=== PATIENT | female | born 1965 | race African-American/Black ===

== ENCOUNTER 2017-07-24 19:16 | Emergency (ER) | payer MEDICAID ==
[~2017-07-24 19:16] MED LIST: ASPIR PO; [UNRECOGNIZED DRUG - OTHER] PO
[2017-07-24 22:15] VITALS: BP 124/60
== END 2017-07-24 22:15 | disposition home or self-care (01) ==
LOC: ED 19:16
DX: S16.1XXA Strain of muscle, fascia and tendon at neck level, initial encounter (principal); S39.012A Strain of muscle, fascia and tendon of lower back, initial encounter; S20.219A Contusion of unspecified front wall of thorax, initial encounter; Z90.49 Acquired absence of other specified parts of digestive tract; F17.210 Nicotine dependence, cigarettes, uncomplicated; V49.9XXA Car occupant (driver) (passenger) injured in unspecified traffic accident, initial encounter; Y93.19 Activity, other involving water and watercraft; Y92.488 Other paved roadways as the place of occurrence of the external cause; Y99.8 Other external cause status
CPT/HCPCS: J1885

== ENCOUNTER 2017-10-22 19:35 | Emergency (ER) | payer MEDICAID ==
[~2017-10-22] VITALS: Ht 157.5 cm; Wt 83.5 kg
[2017-10-22 19:39] VITALS: Ht 157.5 cm; Wt 83.5 kg
[2017-10-22 21:53] VITALS: BP 119/74
== END 2017-10-22 21:53 | disposition home or self-care (01) ==
LOC: ED 19:35
DX: S16.1XXA Strain of muscle, fascia and tendon at neck level, initial encounter (principal); S29.012A Strain of muscle and tendon of back wall of thorax, initial encounter; V89.2XXA Person injured in unspecified motor-vehicle accident, traffic, initial encounter; R07.89 Other chest pain; M25.562 Pain in left knee; V49.9XXA Car occupant (driver) (passenger) injured in unspecified traffic accident, initial encounter; Y93.89 Activity, other specified; Y92.89 Other specified places as the place of occurrence of the external cause; Y99.8 Other external cause status
CPT/HCPCS: J1170; J1885; Q0162

== ENCOUNTER 2018-01-03 11:36 | Inpatient (IN) | payer MEDICAID ==
[~2018-01-03] VITALS: Ht 157.5 cm; Wt 81.7 kg
[2018-01-03 13:07] LABS: BASOPHIL % 0.4 % (0-2); PLATELET COUNT 347 x10^3mcL (130-400); RED CELL DISTRIBUTION WIDTH 13.9 % (11.5-14.5)
[2018-01-03 14:15] LABS: UA SPECIFIC GRAVITY 1.015 (1.005-1.035); microscopic required? YES; urine erythrocyte TRACE (NEGATIVE)
[2018-01-03 14:44] LABS: CARBON DIOXIDE 27.8 mmol/L (21-32); CHLORIDE SERUM 105 mmol/L (98-107); CREATININE SERUM 0.6 mg/dL (0.6-1.0); GFR1 > 60 mL/min; GLUCOSE SERUM 89 mg/dL (74-106); POTASSIUM SERUM 3.7 mmol/L (3.5-5.1); SODIUM SERUM 139 mmol/L (136-145)
[2018-01-03 15:18] VITALS: BP 126/68
[2018-01-03 16:10] LABS: T3 TOTAL 1.18 ng/mL
[2018-01-03 18:43] LABS: FREE T4 1.05 ng/dL (0.76-1.46); FREE THYROXINE INDEX 3.2 ug/dL (1.4-4.5); T4(THYROXINE) 9.8 ug/dL (4.7-13.3)
[2018-01-03 18:45] LABS: AMPHETAMINE QUAL UR NONE DETECTED (NEG <=1000)
[2018-01-03 19:02] LABS: MAGNESIUM 2.1 mg/dL (1.8-2.4); PHOSPHOROUS 3.5 mg/dL (2.5-4.9)
[2018-01-03 19:05] LABS: CHOLESTEROL/HDL RATIO 2.5
[2018-01-03 20:39] LABS: ALBUMIN 3.8 g/dL (3.4-5.0); ALKALINE PHOSPHATASE 73 U/L (46-116); ALT/SGPT 43 U/L (14-59); AST/SGOT 24 U/L (15-37); CALCIUM 8.9 mg/dL (8.5-10.1); CARBON DIOXIDE 23.6 mmol/L (21-32); CHLORIDE SERUM 105 mmol/L (98-107); CREATININE SERUM 0.8 mg/dL (0.6-1.0); GFR1 > 60 mL/min; GLUCOSE SERUM 148 mg/dL (74-106); POTASSIUM SERUM 3.7 mmol/L (3.5-5.1); SODIUM SERUM 138 mmol/L (136-145); TOTAL PROTEIN, SERUM 7.4 g/dL (6.4-8.2)
[2018-01-03 22:29] VITALS: BP 106/55
[2018-01-04 06:06] VITALS: BP 117/61
[2018-01-04 06:54] LABS: BASOPHIL % 0.3 % (0-2); PLATELET COUNT 368 x10^3mcL (130-400); RED CELL DISTRIBUTION WIDTH 13.8 % (11.5-14.5)
[2018-01-04 07:18] LABS: CALCIUM 8.8 mg/dL (8.5-10.1); CARBON DIOXIDE 24.3 mmol/L (21-32); CHLORIDE SERUM 107 mmol/L (98-107); CREATININE SERUM 0.6 mg/dL (0.6-1.0); GFR1 > 60 mL/min; GLUCOSE SERUM 117 mg/dL (74-106); PHOSPHOROUS 2.7 mg/dL (2.5-4.9); POTASSIUM SERUM 3.9 mmol/L (3.5-5.1); SODIUM SERUM 136 mmol/L (136-145)
[2018-01-04 09:33] VITALS: BP 110/70
[2018-01-04 09:57] VITALS: Ht 157.5 cm; Wt 81.7 kg
[2018-01-04] MEDS ORDERED: ROB750 PO (12:37)
[2018-01-04 12:59] VITALS: BP 110/70
== END 2018-01-04 13:22 | disposition home or self-care (01) | DRG 347 ==
LOC: ED 11:36 → DU 14:22
PROVIDERS: Emergency Medicine; Family Medicine
DX: M51.37 Other intervertebral disc degeneration, lumbosacral region (principal); N17.0 Acute kidney failure with tubular necrosis; M62.830 Muscle spasm of back; M94.0 Chondrocostal junction syndrome [Tietze]; R31.9 Hematuria, unspecified; R73.03 Prediabetes; F12.10 Cannabis abuse, uncomplicated; E66.9 Obesity, unspecified; Z68.32 Body mass index [BMI] 32.0-32.9, adult
CPT/HCPCS: 83880; 84439; J1100; J1885; J3010; J7030; Q0092

== ENCOUNTER 2018-06-20 22:54 | Emergency (ER) | payer MEDICAID ==
[~2018-06-20] VITALS: Ht 157.5 cm; Wt 83.6 kg
[~2018-06-20 22:54] MED LIST changes: +ROB750 PO
[2018-06-20 22:57] VITALS: Ht 157.5 cm; Wt 83.6 kg
[2018-06-21 01:28] LABS: BASOPHIL % 0.4 % (0-2); PLATELET COUNT 383 x10^3mcL (130-400); RED CELL DISTRIBUTION WIDTH 14.4 % (11.5-14.5)
[2018-06-21 01:40] LABS: ALBUMIN 3.9 g/dL (3.4-5.0); ALKALINE PHOSPHATASE 93 U/L (46-116); ALT/SGPT 40 U/L (14-59); AST/SGOT 18 U/L (15-37); BILIRUBIN TOTAL 0.56 mg/dL (0.20-1.00); CALCIUM 9.2 mg/dL (8.5-10.1); CARBON DIOXIDE 26.7 mmol/L (21-32); CREATININE SERUM 0.7 mg/dL (0.6-1.0); GFR1 > 60 mL/min; GLUCOSE SERUM 119 mg/dL (74-106); TOTAL PROTEIN, SERUM 7.8 g/dL (6.4-8.2)
[2018-06-21 01:55] LABS: CHLORIDE SERUM 106 mmol/L (98-107); POTASSIUM SERUM 3.8 mmol/L (3.5-5.1); SODIUM SERUM 144 mmol/L (136-145)
[2018-06-21 03:30] VITALS: BP 121/76
== END 2018-06-21 04:14 | disposition home or self-care (01) ==
LOC: ED 22:54
PROVIDERS: Emergency Medicine
DX: R07.89 Other chest pain (principal); R05 Cough; R09.81 Nasal congestion; R10.2 Pelvic and perineal pain; F41.9 Anxiety disorder, unspecified
CPT/HCPCS: 36415; 83880; J1885; J2001; J7620

== ENCOUNTER 2018-06-28 08:45 | Emergency (ER) | payer MEDICAID ==
[~2018-06-28] VITALS: Ht 157.5 cm; Wt 83.0 kg
[2018-06-28 08:49] VITALS: Ht 157.5 cm; Wt 83.0 kg
[2018-06-28 09:23] LABS: BASOPHIL % 0.3 % (0-2); PLATELET COUNT 356 x10^3mcL (130-400); RED CELL DISTRIBUTION WIDTH 13.3 % (11.5-14.5)
[2018-06-28 09:34] LABS: CALCIUM 8.9 mg/dL (8.5-10.1); CARBON DIOXIDE 29.3 mmol/L (21-32); CHLORIDE SERUM 108 mmol/L (98-107); CREATININE SERUM 0.7 mg/dL (0.6-1.0); GFR1 > 60 mL/min; GLUCOSE SERUM 142 mg/dL (74-106); POTASSIUM SERUM 3.4 mmol/L (3.5-5.1); SODIUM SERUM 144 mmol/L (136-145)
[2018-06-28 11:38] VITALS: BP 135/63
[2018-06-28 11:50] LABS: CHOLESTEROL/HDL RATIO 2.9; MAGNESIUM 1.9 mg/dL (1.8-2.4); PHOSPHOROUS 3.4 mg/dL (2.5-4.9)
[2018-06-28 11:52] LABS: T3 TOTAL 1.48 ng/mL
[2018-06-28 11:57] LABS: FREE T4 1.17 ng/dL (0.76-1.46); FREE THYROXINE INDEX 3.6 ug/dL (1.4-4.5); T4(THYROXINE) 10.5 ug/dL (4.7-13.3)
== END 2018-06-28 11:37 | disposition left against medical advice (07) ==
LOC: ED 08:45 → DU 10:31 → ED 10:31
PROVIDERS: Emergency Medicine; Internal Medicine
DX: R07.89 Other chest pain (principal); R06.02 Shortness of breath; R05 Cough; F41.9 Anxiety disorder, unspecified; I31.9 Disease of pericardium, unspecified; Z98.890 Other specified postprocedural states
CPT/HCPCS: 84439; 85378; J3010; J7030; J7613; J7644; Q0092

== ENCOUNTER 2019-02-13 07:59 | Emergency (ER) | payer OTHER ==
[~2019-02-13] VITALS: Ht 157.5 cm; Wt 73.9 kg
[2019-02-13 08:04] VITALS: BP 118/80; Ht 157.5 cm; Wt 73.9 kg
== END 2019-02-13 08:58 | disposition home or self-care (01) ==
LOC: ED 07:59
DX: T19.2XXA Foreign body in vulva and vagina, initial encounter (principal); F41.9 Anxiety disorder, unspecified; F17.210 Nicotine dependence, cigarettes, uncomplicated; F12.90 Cannabis use, unspecified, uncomplicated; W45.8XXA Other foreign body or object entering through skin, initial encounter; Y93.89 Activity, other specified; Y92.89 Other specified places as the place of occurrence of the external cause; Y99.8 Other external cause status
CPT/HCPCS: 99406

== ENCOUNTER 2020-01-29 09:56 | Emergency (ER) | payer OTHER ==
[~2020-01-29] VITALS: Ht 157.5 cm; Wt 75.3 kg
[2020-01-29 10:04] VITALS: Ht 157.5 cm; Wt 75.3 kg
[2020-01-29 11:30] VITALS: BP 116/38
== END 2020-01-29 11:30 | disposition home or self-care (01) ==
LOC: ED 09:56
DX: N39.0 Urinary tract infection, site not specified (principal)
CPT/HCPCS: 87491; 87591

== ENCOUNTER 2020-07-08 14:55 | Emergency (ER) | payer OTHER ==
[~2020-07-08] VITALS: Ht 157.5 cm; Wt 77.1 kg
[2020-07-08 15:07] VITALS: Ht 157.5 cm; Wt 77.1 kg
[2020-07-08 17:11] VITALS: BP 124/74
== END 2020-07-08 17:25 | disposition home or self-care (01) ==
LOC: ED 14:55
DX: S16.1XXA Strain of muscle, fascia and tendon at neck level, initial encounter (principal); S80.12XA Contusion of left lower leg, initial encounter; Z98.890 Other specified postprocedural states; V49.9XXA Car occupant (driver) (passenger) injured in unspecified traffic accident, initial encounter; Y93.I9 Activity, other involving external motion; Y92.413 State road as the place of occurrence of the external cause; Y99.8 Other external cause status
CPT/HCPCS: J1885

== ENCOUNTER 2020-08-14 11:27 | Emergency (ER) | payer OTHER ==
[~2020-08-14] VITALS: Ht 157.5 cm; Wt 77.1 kg
[2020-08-14 11:32] VITALS: Ht 157.5 cm; Wt 77.1 kg
[2020-08-14 14:21] VITALS: BP 117/69
== END 2020-08-14 14:21 | disposition home or self-care (01) ==
LOC: ED 11:27
DX: S66.912A Strain of unspecified muscle, fascia and tendon at wrist and hand level, left hand, initial encounter (principal); Z98.890 Other specified postprocedural states; V49.9XXA Car occupant (driver) (passenger) injured in unspecified traffic accident, initial encounter; Y93.89 Activity, other specified; Y92.488 Other paved roadways as the place of occurrence of the external cause; Y99.8 Other external cause status
CPT/HCPCS: J1885